=== PATIENT | female | born 1995 | race Caucasian/White ===

== ENCOUNTER → 2019-01-16 | Outpatient (REF) | payer OTHER | LOC: M LAB LCGH 12:08 | PROVIDERS: ATTEND Obstetrics & Gynecology | DX: Z12.4 Encounter for screening for malignant neoplasm of cervix (principal); B37.3 Candidiasis of vulva and vagina ==

== ENCOUNTER 2019-07-05 00:59 | Emergency (ER) | payer OTHER ==
[2019-07-05] MEDS ORDERED: SERT-138 (01:13)
[2019-07-05] MEDS ORDERED: PREN29TA4 PO (01:13)
[2019-07-05 02:52] VITALS: BP 135/69
== END 2019-07-05 02:53 | disposition home or self-care (01) ==
LOC: M ED 00:59
DX: Z76.5 Malingerer [conscious simulation] (principal); F33.9 Major depressive disorder, recurrent, unspecified; Z79.899 Other long term (current) drug therapy